=== PATIENT | female | born 1985 | race Caucasian/White ===

== ENCOUNTER 2020-07-25 06:00 | Inpatient (IN) | payer BC ==
--- NOTE | 2020-07-24 18:26 | P.HPOB ---
History of Present Illness H&P Date: 07/24/20 Chief Complaint: Induction of labor This is a 35 y.o. female, 2, para 1, with an estimated date of confinement of 07/27/2020, estimated gestational age of 39-5/7 weeks, who presents for induction of labor. She is feeling irregular contractions and pressure. She has been doing twice weekly NSTs due to advanced maternal age. She was seen by MFM earlier in the due to her having a child with SMA. She was tested and is not a carrier. labs: Hepatitis B surface antigen-neg RPR-NR Rubella-immune Blood type-A+ Antibody screen-neg HIV-NR Hgb-13 Toxoplasma-neg Random glucose-83 1 hr. GTT-80 GBS-neg OB Hx: . History of 1 vaginal delivery at term. 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 Works in a factory. Review of Systems Constitutional: Denies chills, Denies fever Eyes: denies blurred vision, denies pain Cardiovascular: Denies chest pain, Denies shortness of breath Respiratory: Denies cough Gastrointestinal: Reports abdominal pain (irregular contractions), Denies diarrhea, Denies nausea, Denies vomiting Genitourinary: Reports pelvic pain, Reports Musculoskeletal: Reports low back pain Integumentary: Denies pruritus, Denies rash Neurological: Denies numbness, Denies weakness Past Medical History Past Medical History: Fibromyalgia, Thyroid Disorder Additional Past Medical History / Comment(s): hypothyroidism History of Any Multi-Drug Resistant Organisms: None Reported Past Surgical History: Tonsillectomy Additional Past Surgical History / Comment(s): Patient has had a gastric sleeve in 2009 Past Anesthesia/Blood Transfusion Reactions: No Reported Reaction Past Psychological History: No Psychological Hx Reported Past Alcohol Use History: None Reported Past Drug Use History: None Reported - Past Family History Father Family Medical History: Diabetes Mellitus, Hypertension Mother Family Medical History: Congestive Heart Failure (CHF), COPD, Diabetes Mellitus Medications and Allergies Home Medications Medication Instructions Recorded Confirmed Type Pnv,Calcium 72/Iron/Folic Acid 1 tab PO DAILY 07/23/14 07/23/14 History [ Plus Tablet] Levothyroxine Sodium [Synthroid] 125 mcg PO DAILY 07/24/20 07/24/20 History Allergies Allergy/AdvReac Type Severity Reaction Status Date / Time Penicillins Allergy Anaphylaxis Verified 07/23/14 03:49 Exam Osteopathic Statement: *. No significant issues noted on an osteopathic structural exam other than those noted in the History and Physical/Consult. HEENT: within normal limits Heart: regular rate and rhythm Lungs: clear to auscultation bilaterally Abdomen: , non-tender Cervix: 3.5 cm/70%/-1 heart tones: 120's by doppler Extremites: neg. Ligia's Assessment and Plan (1) 39 weeks gestation of Status: Acute Code(s): Z3A.39 - 39 WEEKS GESTATION OF SNOMED Code(s): 06657136 (2) Advanced maternal age (AMA) in Status: Acute Code(s): WZB2106 - SNOMED Code(s): 482598796 Plan: Proceed with oxytocin induction of labor. Expectant management. Epidural anesthesia if desired.
[2020-07-25] MEDS ORDERED: LIDOCAINE 0.5% (PF) 5 MG/ML (50 ML SDV) SQ PRN (06:22)
[2020-07-25] MEDS ORDERED: METHYLERGONOVINE 0.2 MG/ML 1 ML AMP IM PRN (06:22)
[2020-07-25] MEDS ORDERED: LACTATED RINGERS 1,000 ML IV SCH (06:22)
[2020-07-25] MEDS ORDERED: TERBUTALINE 1 MG/ML VIAL SQ PRN (06:22)
[2020-07-25] MEDS ORDERED: OXYTOCIN 30 UNITS/500 ML NS 30 UNIT in SALINE 1 500ML.BAG IV SCH ×2 (06:22→13:21)
[2020-07-25] MEDS ORDERED: CARBOPROST TROMETHAMINE 250 MCG/ML 1 ML AMP IM PRN (06:22)
[2020-07-25] MEDS ORDERED: LIDOCAINE 1% (10MG/ML) FOR IV START INTRADERMA PRN (06:22)
[2020-07-25] MEDS ORDERED: OXYTOCIN 10 UNIT/ML 1 ML VIAL IM PRN (06:22)
[2020-07-25 06:27] VITALS: RESP 16
[2020-07-25 07:02] LABS: Basophils % (A) 0 %; Eosinophils # (A) 0.2 k/uL (0-0.7); Eosinophils % (A) 2 %; HCT 29.9 % (34.0-46.0); HGB 10.3 gm/dL (11.4-16.0); Lymphocytes # (A) 2.4 k/uL (1.0-4.8); Lymphocytes % (A) 21 %; MCH 28.3 pg (25.0-35.0); MCHC 34.5 g/dL (31.0-37.0); MCV 81.9 fL (80.0-100.0); Monocytes # (A) 0.6 k/uL (0-1.0); Monocytes % (A) 5 %; Neutrophils # (A) 8.3 k/uL (1.3-7.7); Neutrophils % (A) 72 %; Platelet Count 331 k/uL (150-450); RBC 3.65 m/uL (3.80-5.40); RDW 13.9 % (11.5-15.5); WBC 11.6 k/uL (3.8-10.6)
--- NOTE | 2020-07-25 13:07 | P.PROBDLV ---
Vaginal Delivery Note - . Vaginal Delivery Note: The patient progressed to complete dilation after oxytocin induction of labor and artificial rupture membranes with clear fluid noted. She did not receive anything for pain. Once reaching complete, she began pushing. Infant's head came to a crown. With one further push, the infant's head delivered across the perineum followed by the anterior shoulder and then the remainder of the infant. Nuchal cord 1 was reduced around the body with delivery. Nose and mouth were bulb suctioned after delivery. Cord was clamped and cut and infant was taken to warmer for evaluation. A viable female infant is noted with scores of 8 at 1 minute and 9 at 5 minutes and weight of 7 lbs. 1 oz. Her placenta delivered shortly thereafter, intact, with a three-vessel cord. Uterus contracted fairly well after oxytocin was given and uterine massage was carried out. Inspection of the perineum revealed a small second-degree perineal laceration. This area was anesthetized with 1% lidocaine and then sutured with 3-0 and 2-0 Vicryl suture in the usual multilayer fashion. Estimated blood loss is approximately 150 mL's. Both mother and are in stable condition.
[2020-07-25] MEDS ORDERED: diphenhydrAMINE 25 MG CAP PO PRN (13:21)
[2020-07-25] MEDS ORDERED: diphenhydrAMINE 50 MG CAP PO PRN (13:21)
[2020-07-25] MEDS ORDERED: HYDROCORTISONE 2.5% RECTAL CREAM 30 GM TUBE RECTAL PRN (13:21)
[2020-07-25] MEDS ORDERED: SIMETHICONE 80 MG CHEWABLE PO PRN (13:21)
[2020-07-25] MEDS ORDERED: LANOLIN CREAM 5 GM TUBE TOPICAL PRN (13:21)
[2020-07-25] MEDS ORDERED: ZOLPIDEM 5 MG TAB PO PRN (13:21)
[2020-07-25] MEDS ORDERED: ACETAMINOPHEN TAB 325 MG TAB PO PRN (13:21)
[2020-07-25] MEDS ORDERED: BENZOCAINE/MENTHOL SPRAY 1 GM/SPRAY AEROSOL TOPICAL PRN (13:21)
[2020-07-25] MEDS ORDERED: diphenhydrAMINE 50 MG/ML 1 ML VIAL IVP PRN ×2 (13:21)
[2020-07-25] MEDS: IBUPROFEN 600 MG TAB PO SCH ×2 (15:06→21:05)
[2020-07-25] MEDS: LEVOTHYROXINE 125 MCG TAB PO SCH (19:18)
[2020-07-25] MEDS: SENNOSIDES-DOCUSATE SODIUM 1 EACH TAB PO SCH (21:05)
[2020-07-26] MEDS: IBUPROFEN 600 MG TAB PO SCH ×2 (03:11→09:08)
[2020-07-26 03:52] LABS: Basophils % (A) 0 %; Eosinophils # (A) 0.2 k/uL (0-0.7); Eosinophils % (A) 1 %; HCT 28.2 % (34.0-46.0); HGB 9.3 gm/dL (11.4-16.0); Hypochromasia Slight; Lymphocytes # (A) 2.7 k/uL (1.0-4.8); Lymphocytes % (A) 20 %; MCH 27.4 pg (25.0-35.0); MCHC 33.1 g/dL (31.0-37.0); MCV 82.8 fL (80.0-100.0); Mean Platelet Volume 8.4; Monocytes # (A) 0.8 k/uL (0-1.0); Monocytes % (A) 6 %; Neutrophils # (A) 9.9 k/uL (1.3-7.7); Neutrophils % (A) 72 %; Platelet Count 283 k/uL (150-450); RDW 13.8 % (11.5-15.5); WBC 13.7 k/uL (3.8-10.6)
[2020-07-26] MEDS: LEVOTHYROXINE 125 MCG TAB PO SCH (06:44)
--- NOTE | 2020-07-26 08:13 | P.DS ---
Providers Date of admission: 07/25/20 06:05 Expected date of discharge: 07/26/20 Attending physician: Brittanie Head Primary care physician: Stated None - Discharge Diagnosis(es) (1) Vaginal delivery Current Visit: No Status: Acute Hospital Course: Patient presented for induction of labor at 39 weeks and 5 days. She underwent normal vaginal delivery with Dr. Head. course was uncomplicated. She'll be discharged home day #1 in stable condition to follow-up with Dr. Head in 6 weeks. Plan - Discharge Summary New Discharge Prescriptions: New Ibuprofen [Motrin] 600 mg PO Q6H #60 tab Continue Pnv,Calcium 72/Iron/Folic Acid [ Plus Tablet] 1 tab PO DAILY Levothyroxine Sodium [Synthroid] 125 mcg PO DAILY Discharge Medication List Pnv,Calcium 72/Iron/Folic Acid [ Plus Tablet] 1 tab PO DAILY 07/23/14 [History] Levothyroxine Sodium [Synthroid] 125 mcg PO DAILY 07/24/20 [History] Ibuprofen [Motrin] 600 mg PO Q6H #60 tab 07/25/20 [Rx] Follow up Appointment(s)/Referral(s): Brittanie Head DO [Doctor of Osteopathic Medicine] - 6 Weeks Activity/Diet/Wound Care/Special Instructions: Instructions 1. Do not begin any exercise program for 3 weeks. 2. Do not resume sexual relations for 3 weeks or longer if uncomfortable. 3. You may take tub baths or showers at any time. 4. You may use tampons if desired after 3 weeks. 5. Keep the area of episiotomy (stitches) clean and dry. 6. If you are not nursing, wear a good fitting, supportive bra during the day and limit fluid intake for at least 1 week to prevent breast engorgement. 7. Call the office, [phone], within the next week to make appointment for your 6 week checkup if it has not already been made. 8. Report any of the following occurrences to the doctor promptly: a. Heavy, excessive bleeding b. Chills, fever c. Burning or frequency of urination d. Pain or redness and breasts if nursing e. Increasing pain or swelling in episiotomy (stitches). Discharge Disposition: HOME SELF-CARE
[2020-07-26 08:47] VITALS: BP 115/66; PULSE 67; TEMP 97.9
[2020-07-26] MEDS: SENNOSIDES-DOCUSATE SODIUM 1 EACH TAB PO SCH (09:08)
== END 2020-07-26 15:55 | disposition home or self-care (01) | DRG 807 ==
LOC: 4FBP 06:05
PROVIDERS: ADMIT Obstetrics & Gynecology; ATTEND Obstetrics & Gynecology
PROC: 10E0XZZ Delivery of Products of Conception, External Approach (ICD-10-PCS; principal; 2020-07-25)
PROC: 0KQM0ZZ Repair Perineum Muscle, Open Approach (ICD-10-PCS; 2020-07-25)
DX: O69.81X0 Labor and delivery complicated by cord around neck, without compression, not applicable or unspecified (principal); Z37.0 Single live birth; E03.9 Hypothyroidism, unspecified; M79.7 Fibromyalgia; O70.1 Second degree perineal laceration during delivery; O99.284 Endocrine, nutritional and metabolic diseases complicating childbirth; O99.844 Bariatric surgery status complicating childbirth; Z3A.39 39 weeks gestation of pregnancy; Z79.890 Hormone replacement therapy; Z82.49 Family history of ischemic heart disease and other diseases of the circulatory system; Z82.5 Family history of asthma and other chronic lower respiratory diseases; Z83.3 Family history of diabetes mellitus
CPT/HCPCS: 85025; 86850; 86900; 86901